=== PATIENT | male | born 2000 | race Caucasian/White ===

== ENCOUNTER 2024-10-22 14:56 | Emergency (ER) | payer OTHER ==
[~2024-10-22] VITALS: Ht 175.3 cm; Wt 137.4 kg
[2024-10-22 15:21] VITALS: TEMP 98
[2024-10-22] MEDS: KETOROLAC TROMETHAMINE 60 MG/2 ML VIAL IM ONE (16:56)
[2024-10-22] MEDS: CYCLOBENZAPRINE HCL 10 MG TAB PO ONE (16:57)
[2024-10-22 18:15] VITALS: PULSE 88; RESP 16; O2SAT 98
[2024-10-22] MEDS ORDERED: CYCLOBENZAPRINE10 MG PO (18:17)
== END 2024-10-22 18:25 | disposition home or self-care (01) ==
LOC: ER 15:07
DX: M54.50 Low back pain, unspecified (principal); F84.0 Autistic disorder; F79 Unspecified intellectual disabilities; F98.8 Other specified behavioral and emotional disorders with onset usually occurring in childhood and adolescence
CPT/HCPCS: 72100; 99283; J1885

== ENCOUNTER 2024-12-01 13:59 | Emergency (ER) | payer MEDICAID ==
[~2024-12-01] VITALS: Ht 175.3 cm; Wt 137.4 kg
[~2024-12-01 13:59] MED LIST: CYCLOBENZAPRINE10 MG PO
[2024-12-01 15:07] VITALS: PULSE 86; RESP 18; TEMP 98; O2SAT 99
[2024-12-01] MEDS ORDERED: HYDROCORTISON28.4 G6 TOP (15:25)
== END 2024-12-01 15:53 | disposition home or self-care (01) ==
LOC: ER 15:09
DX: R21 Rash and other nonspecific skin eruption (principal); F84.0 Autistic disorder; F79 Unspecified intellectual disabilities; F98.8 Other specified behavioral and emotional disorders with onset usually occurring in childhood and adolescence
CPT/HCPCS: 99283